=== PATIENT | female | born 1990 | race Caucasian/White ===

== ENCOUNTER 2016-06-05 18:41 | Emergency (ER) | payer OTHER ==
[2016-06-05 19:43] LABS: BASO % 0.5 % (0.1-1.2); EOS # 0.1 10_X3_uL (0.0-0.4); EOS % 0.6 % (0.7-5.8); GRAN # 5.4 10_X3_uL (1.6-6.1); GRAN % 62.4 % (34.0-71.1); HEMATOCRIT 36.8 % (34-45); HEMOGLOBIN 12.3 g/dL (11.2-15.7); LYMPH # 2.6 10_X3_uL (1.2-3.7); LYMPH % 30.7 % (19.3-51.7); MEAN CORPUSCULAR HEMOGLOBIN 27.1 pg (27.0-33.0); MEAN CORPUSCULAR HGB CONC 33.4 g/dL (32.0-36.0); MEAN CORPUSCULAR VOLUME 81.1 fL (79-95); MEAN PLATELET VOLUME 10.5 fl (7.5-11.5); MONO # 0.5 10_X3_uL (0.2-0.9); MONO % 5.8 % (4.7-12.5); PLATELET COUNT 299 x10_3/uL (182-369); RED BLOOD COUNT 4.54 x10_6/uL (3.9-5.2); RED CELL DISTRIBUTION WIDTH 13.7 % (11.7-14.4); WHITE BLOOD COUNT 8.6 x10_3/uL (4.0-10.0)
[2016-06-05 19:57] LABS: BLOOD UREA NITROGEN 15 mg/dL (7-18); CALCIUM 8.8 mg/dL (8.7-10.7); CARBON DIOXIDE 23 mmol/L (21-32); CREATININE 0.6 mg/dL (0.6-1.3); GLUCOSE,RANDOM 85 mg/dL (70-99); SODIUM 139 mmol/L (136-145)
[2016-06-05 20:02] LABS: POTASSIUM 5.2 mmol/L (3.5-5.1)
== END 2016-06-05 20:45 | disposition home or self-care (01) ==
LOC: ER 18:41
PROVIDERS: Internal Medicine
DX: R11.2 Nausea with vomiting, unspecified (principal); R19.7 Diarrhea, unspecified; Z88.1 Allergy status to other antibiotic agents; Z79.3 Long term (current) use of hormonal contraceptives
CPT/HCPCS: 36415; 80048; 85025; 96361; 96374; 99070; 99283-25